=== PATIENT | female | born 1980 | race Two or more races ===

== ENCOUNTER 2017-11-25 22:04 | Inpatient (IN) | payer BC ==
[~2017-11-25] VITALS: Ht 170.2 cm; Wt 105.4 kg
[2017-11-25 22:45] LABS: MICROSCOPIC AUTO
[2017-11-25 23:28] LABS: AMNISURE POSITIVE (NEGATIVE)
[2017-11-25 23:31] LABS: BASOPHILS # (AUTO) 0.05 x10^3/uL (0-0.1); BASOPHILS % (AUTO) 1 % (0-1); EOSINOPHILS # (AUTO) 0.03 x10^3/uL (0-0.4); EOSINOPHILS % (AUTO) 0 % (1-7); LYMPHOCYTES # (AUTO) 1.82 x10^3/uL (1-3.4); LYMPHOCYTES % (AUTO) 17 % (22-44); MD NO; MEAN CORPUSCULAR HEMOGLOBIN 28.9 pg (27.0-34.8); MEAN CORPUSCULAR VOLUME 87.7 fL (80-100); MEAN PLATELET VOLUME 7.6 fL (7.4-10.4); MONOCYTES % (AUTO) 8 % (2-9); NEUTROPHILS # (AUTO) 7.93 x10^3/uL (1.8-6.8); NEUTROPHILS % (AUTO) 75 % (42-75); PLATELET COUNT 244 x10^3/uL (130-400); RED BLOOD COUNT 4.51 x10^6/uL (3.82-5.3); RED CELL DISTRIBUTION WIDTH 13.3 % (9.6-15.2)
[2017-11-25] MEDS ORDERED: OXYTOCIN 30U/ 0.9% NaCL 500ML 500 ML IV ONE (23:40)
[2017-11-25 23:41] LABS: ALANINE AMINOTRANSFERASE 20 U/L (12-78); ALBUMIN 2.7 g/dL (3.4-5.0); ANION GAP 11 mmol/L (5-15); BILIRUBIN, DIRECT < 0.1 mg/dL (0.1-0.2); CALCIUM 9.6 mg/dL (8.5-10.1); CHLORIDE 107 mmol/L (98-107); CREATININE 0.68 mg/dL (0.55-1.02)
[2017-11-25 23:49] LABS: ALKALINE PHOSPHATASE 87 U/L (45-117); BILIRUBIN,TOTAL 0.3 mg/dL (0.2-1.0)
[2017-11-26] MEDS ORDERED: FENTANYL PF 100 MCG/2ML IV PRN
[2017-11-26] MEDS ORDERED: FENTANYL PF 100 MCG/2ML IVPush PRN
[2017-11-26] MEDS ORDERED: ONDANSETRON 2MG/ML, 2ML IVPush PRN
[2017-11-26] MEDS ORDERED: TERBUTALINE 1 MG/ML, 1ML IVPush PRN
[2017-11-26] MEDS: LACTATED RINGERS 1,000 ML IV SCH ×5 (00:05→18:11)
[2017-11-26] MEDS ORDERED: AMPICILLIN 2 GM in SODIUM CHLORIDE 0.9% 100 ML IVPB STA (00:24)
[2017-11-26] MEDS ORDERED: OXYTOCIN 30U/ 0.9% NaCL 500ML 500 ML IV PRN (00:24)
[2017-11-26] MEDS ORDERED: LIDOCAINE 1%, 20ML ONE (00:28)
[2017-11-26] MEDS ORDERED: OXYTOCIN 30U/ 0.9% NaCL 500ML 500 ML ONE (00:28)
[2017-11-26] MEDS ORDERED: MISOPROSTOL 200 MCG TABLET ONE (00:28)
[2017-11-26] MEDS ORDERED: ONDANSETRON 2MG/ML, 2ML ONE (00:34)
[2017-11-26] MEDS ORDERED: TERBUTALINE 1 MG/ML, 1ML ONE (00:40)
[2017-11-26] MEDS ORDERED: NEWBORN KIT ONE (01:01)
[2017-11-26] MEDS ORDERED: LIDOCAINE-MPF 2% ,5ML ONE (01:34)
[2017-11-26] MEDS ORDERED: FENTANYL/BUPIV./NS/PF 250 ML EPIDCONT ONE (01:35)
[2017-11-26] MEDS ORDERED: FENTANYL/BUPIV./NS/PF 250 ML EPIDCONT SCH (02:11)
[2017-11-26] MEDS ORDERED: NALOXONE 0.4 MG/ML, 1ML IVPush PRN (02:30)
[2017-11-26] MEDS ORDERED: LACTATED RINGERS 1,000 ML IVBOLUS PRN (02:30)
[2017-11-26] MEDS ORDERED: EPHEDRINE 50 MG/ML, 1ML IVPush PRN (02:30)
[2017-11-26] MEDS ORDERED: PREN1TAB60 PO (03:55)
[2017-11-26] MEDS ORDERED: RANI75TA12 PO (03:55)
[2017-11-26] MEDS: AMPICILLIN 1 GM in SODIUM CHLORIDE 0.9% 50 ML IVPB SCH ×3 (04:30→08:30)
[2017-11-26] MEDS ORDERED: CALCIUM CARBONATE 500 MG TAB.CHEW ONE (07:56)
[2017-11-26] MEDS: CALCIUM CARBONATE 500 MG TAB.CHEW PO PRN ×2 (07:58→12:00)
[2017-11-26] MEDS: OXYTOCIN 30U/ 0.9% NaCL 500ML 500 ML IV SCH ×2 (08:47→18:47)
[2017-11-26] MEDS ORDERED: MISOPROSTOL 200 MCG TABLET PR PRN (09:00)
[2017-11-26] MEDS: PRENATAL VIT/IRON/FA 1 EACH TABLET PO SCH (09:00)
[2017-11-26] MEDS ORDERED: CARBOPROST TROMETHAMINE 250 MCG/ML, 1ML IM PRN (09:00)
[2017-11-26] MEDS ORDERED: HYDROcodone/APAP 5/325 TABLET PO PRN (09:00)
[2017-11-26] MEDS ORDERED: CALCIUM CARBONATE 500 MG TAB.CHEW PO PRN (09:00)
[2017-11-26] MEDS ORDERED: ONDANSETRON 2MG/ML, 2ML IV PRN (09:00)
[2017-11-26] MEDS ORDERED: METHYLERGONOVINE 0.2 MG/ML IM PRN (09:00)
[2017-11-26] MEDS ORDERED: ACETAMINOPHEN 325 MG TABLET PO PRN (09:00)
[2017-11-26 11:45] VITALS: BP 152/96
[2017-11-26 12:35] VITALS: BP 138/84
[2017-11-26] MEDS: IBUPROFEN 600 MG TABLET PO PRN ×2 (13:47→19:39)
[2017-11-26 15:05] LABS: MEAN CORPUSCULAR HEMOGLOBIN 30.3 pg (27.0-34.8); MEAN CORPUSCULAR HGB CONC 34.3 g/dL (32.4-35.8); MEAN CORPUSCULAR VOLUME 88.4 fL (80-100); MEAN PLATELET VOLUME 7.7 fL (7.4-10.4); PLATELET COUNT 223 x10^3/uL (130-400); RED CELL DISTRIBUTION WIDTH 13.7 % (9.6-15.2)
[2017-11-26 15:23] LABS: BASOPHILS # (AUTO) 0.01 x10^3/uL (0-0.1); BASOPHILS % (AUTO) 0 % (0-1); EOSINOPHILS # (AUTO) 0.02 x10^3/uL (0-0.4); EOSINOPHILS % (AUTO) 0 % (1-7); LYMPHOCYTES # (AUTO) 1.65 x10^3/uL (1-3.4); LYMPHOCYTES % (AUTO) 11 % (22-44); MD SCAN; MONOCYTES # (AUTO) 1.12 x10^3/uL (0.2-0.8); MONOCYTES % (AUTO) 7 % (2-9); NEUTROPHILS # (AUTO) 12.84 x10^3/uL (1.8-6.8); NEUTROPHILS % (AUTO) 82 % (42-75)
[2017-11-26 16:00] VITALS: BP 135/81
[2017-11-26] MEDS: HYDROcodone/APAP 5/325 TABLET PO PRN (19:39)
[2017-11-26] MEDS: DOCUSATE 100 MG CAPSULE PO PRN (19:39)
[2017-11-26 19:40] VITALS: BP 121/91
[2017-11-26 23:55] VITALS: BP 124/78
[2017-11-27] MEDS: IBUPROFEN 600 MG TABLET PO PRN ×4 (01:59→22:09)
[2017-11-27] MEDS: CALCIUM CARBONATE 500 MG TAB.CHEW PO PRN ×2 (01:59→15:52)
[2017-11-27] MEDS: HYDROcodone/APAP 5/325 TABLET PO PRN ×4 (01:59→22:09)
[2017-11-27] MEDS: LACTATED RINGERS 1,000 ML IV SCH ×2 (02:11→10:11)
[2017-11-27 04:05] VITALS: BP 110/75
[2017-11-27] MEDS: OXYTOCIN 30U/ 0.9% NaCL 500ML 500 ML IV SCH (04:47)
[2017-11-27 08:05] VITALS: BP 117/77
[2017-11-27] MEDS: DOCUSATE 100 MG CAPSULE PO PRN ×2 (08:50→22:09)
[2017-11-27] MEDS: PRENATAL VIT/IRON/FA 1 EACH TABLET PO SCH (08:50)
[2017-11-27 19:52] VITALS: BP 130/81
[2017-11-28] MEDS: HYDROcodone/APAP 5/325 TABLET PO PRN ×2 (04:10→10:03)
[2017-11-28] MEDS: IBUPROFEN 600 MG TABLET PO PRN ×2 (04:10→10:03)
[2017-11-28 08:15] VITALS: BP 111/70
[2017-11-28] MEDS: PRENATAL VIT/IRON/FA 1 EACH TABLET PO SCH (08:26)
[2017-11-28] MEDS: DOCUSATE 100 MG CAPSULE PO PRN (08:26)
[2017-11-28] MEDS ORDERED: HYDR-3240 PO (11:39)
[2017-11-28] MEDS ORDERED: IBUP-1222 PO (11:40)
== END 2017-11-28 12:55 | disposition home or self-care (01) | DRG 775 ==
LOC: LDOP 22:04 → LDIP 11-26 00:36 → 2NW 11-26 11:33
PROVIDERS: ADMIT Obstetrics & Gynecology; ATTEND Obstetrics & Gynecology
PROC: 10E0XZZ Delivery of Products of Conception, External Approach (ICD-10-PCS; principal; 2017-11-26)
PROC: 0HQ9XZZ Repair Perineum Skin, External Approach (ICD-10-PCS; 2017-11-26)
PROC: 10H07YZ Insertion of Other Device into Products of Conception, Via Natural or Artificial Opening (ICD-10-PCS; 2017-11-26)
PROC: 3E0R3BZ Introduction of Anesthetic Agent into Spinal Canal, Percutaneous Approach (ICD-10-PCS; 2017-11-26)
PROC: 00HU33Z Insertion of Infusion Device into Spinal Canal, Percutaneous Approach (ICD-10-PCS; 2017-11-26)
DX: O77.0 Labor and delivery complicated by meconium in amniotic fluid (principal); O69.1XX0 Labor and delivery complicated by cord around neck, with compression, not applicable or unspecified; Z37.0 Single live birth; O70.0 First degree perineal laceration during delivery; Z3A.39 39 weeks gestation of pregnancy
CPT/HCPCS: 36415; 80053; 81001; 82248; 82803; 84112; 84550; 85025; J0290; J2405; J2590; J3010; J7120

== ENCOUNTER 2018-11-30 22:49 | Inpatient (IN) | payer BC, OTHER ==
[~2018-11-30] VITALS: Ht 170.2 cm; Wt 81.2 kg
[~2018-11-30 22:49] MED LIST: HYDR-3240 PO; IBUP-1222 PO; PREN1TAB60 PO; RANI75TA12 PO
[2018-11-30] MEDS ORDERED: ONDANSETRON 2MG/ML, 2ML ONE ×2 (23:00→23:24)
[2018-11-30 23:19] LABS: BASOPHILS # (AUTO) 0.03 x10^3/uL (0-0.1); BASOPHILS % (AUTO) 0 % (0-1); EOSINOPHILS # (AUTO) 0.03 x10^3/uL (0-0.4); EOSINOPHILS % (AUTO) 0 % (1-7); LYMPHOCYTES # (AUTO) 1.25 x10^3/uL (1-3.4); LYMPHOCYTES % (AUTO) 11 % (22-44); MD NO; MEAN CORPUSCULAR HEMOGLOBIN 29.2 pg (27.0-34.8); MEAN CORPUSCULAR HGB CONC 33.6 g/dL (32.4-35.8); MEAN CORPUSCULAR VOLUME 86.9 fL (80-100); MEAN PLATELET VOLUME 7.9 fL (7.4-10.4); MONOCYTES # (AUTO) 0.47 x10^3/uL (0.2-0.8); MONOCYTES % (AUTO) 4 % (2-9); NEUTROPHILS # (AUTO) 9.28 x10^3/uL (1.8-6.8); NEUTROPHILS % (AUTO) 84 % (42-75); PLATELET COUNT 266 x10^3/uL (130-400); RED CELL DISTRIBUTION WIDTH 13.6 % (9.6-15.2)
--- NOTE | 2018-11-30 23:20 | NUR ---
PT TO ROOM BY WHEELCHAIR, ACTIVELY VOMITING/PALE/DIAPHORETIC. PT REPORTS EPIGASTRIC ABD PAIN/N/V X 1800 TONIGHT. DENIES FEVER/BLOOD IN EMESIS/CP/SOB. IV ESTABLISHED, LABS DRAWN. IVF HUNG. PT MEDICATED PER VERBAL ORDER FROM ERP FOR NAUSEA. BP/SPO2 MONITORING IN PLACE. EKG COMPLETED UPON ARRIVAL. FRIEND AT BEDSIDE.
[2018-11-30] MEDS ORDERED: PROMETHAZINE 25 MG/ML, 1ML ONE (23:24)
[2018-11-30] MEDS ORDERED: MORPHINE SULFATE 4 MG/ML, 1ML ONE (23:25)
[2018-11-30] MEDS: MORPHINE SULFATE 4 MG/ML, 1ML IVPush PRN (23:26)
[2018-11-30 23:29] LABS: ALANINE AMINOTRANSFERASE 21 U/L (12-78); ALBUMIN 4.5 g/dL (3.4-5.0); ANION GAP 10 mmol/L (5-15); CALCIUM 8.9 mg/dL (8.5-10.1); CHLORIDE 107 mmol/L (98-107); CREATININE 0.97 mg/dL (0.55-1.02)
[2018-11-30] MEDS ORDERED: PROMETHAZINE 25 MG/ML, 1ML IM ONE (23:30)
[2018-11-30] MEDS ORDERED: ONDANSETRON 2MG/ML, 2ML IVPush ONE (23:30)
[2018-11-30] MEDS ORDERED: SODIUM CHLORIDE FLUSH 10ML SYR IVF ONE (23:30)
[2018-11-30 23:34] LABS: ALKALINE PHOSPHATASE 58 U/L (45-117); BILIRUBIN,TOTAL 0.8 mg/dL (0.2-1.0)
--- NOTE | 2018-11-30 23:47 | NUR ---
COMMODE AT BS. PT AWARE OF NEED FOR UA AND AGREES TO PROVIDE WHEN ABLE.
--- NOTE | 2018-12-01 00:08 | NUR ---
PT RESTING COMFORTABLY IN RNEY. RESPIRATIONS EVEN AND UNLABORED. HR 56. NO REPEAT EKG PER ERP
[2018-12-01] MEDS ORDERED: MORPHINE SULFATE 4 MG/ML, 1ML ONE (00:20)
--- NOTE | 2018-12-01 00:20 | NUR ---
PT TO BEDSIDE COMMODE TO PROVIDE UA. UA COLLECTED AND SENT TO LAB
[2018-12-01] MEDS: MORPHINE SULFATE 4 MG/ML, 1ML IVPush PRN (00:26)
[2018-12-01] MEDS ORDERED: SODIUM CHLORIDE 0.9% 1,000 ML IV ONE (00:34)
--- NOTE | 2018-12-01 00:34 | NUR ---
PT REPORTS SLIGHT IMPROVEMENT IN PAIN, 8/10 AND VOMITING. PT MEDICATED PER EMAR FOR CONTINUED PAIN. PT REPORTS CONTINUED VOMITING ERP AT BEDSIDE TO DISCUSS POC (ADMIT), PT DEMONSTRATES UNDERSTANDING.
--- NOTE | 2018-12-01 00:41 | NUR ---
PT RESTING COMFORTABLY AFTER MEDICATIONS. DESAT TO 80'S ON RA. PT EASILY ARROUSABLE TO VOICE; PLACED ON 3L BY NC, SPO2 TO >90%.
[2018-12-01 00:45] LABS: MICROSCOPIC NOT IND
[2018-12-01 00:49] LABS: CULTURE INDICATED? NO
[2018-12-01] MEDS ORDERED: DOCUSATE 100 MG CAPSULE PO PRN (01:00)
[2018-12-01] MEDS ORDERED: hydrALAzine 20 MG/ML, 1ML IVPush PRN (01:00)
[2018-12-01] MEDS ORDERED: ONDANSETRON ODT 4 MG PO PRN (01:00)
[2018-12-01 01:29] LABS: HEMOGLOBIN A1C 5.5 % (4.2-6.3)
[2018-12-01 01:30] VITALS: BP 115/76
[2018-12-01 01:30] LABS: FREE T4 (FREE THYROXINE) 1.28 ng/dL (0.76-1.46)
[2018-12-01] MEDS ORDERED: POTASSIUM CHLORIDE 40 MEQ in SODIUM CHLORIDE 0.9% 500 ML IV ONE (01:30)
[2018-12-01] MEDS: SODIUM CHLORIDE 0.9% 1,000 ML IV SCH ×2 (02:00→23:49)
[2018-12-01] MEDS: HEPARIN 5,000 UNITS/ML, 1ML SQ SCH ×3 (02:01→16:45)
[2018-12-01] MEDS: KETOROLAC 30 MG/1 ML IV PRN ×4 (02:15→22:49)
[2018-12-01] MEDS: PROMETHAZINE 25 MG/ML, 1ML IM PRN (02:15)
[2018-12-01] MEDS: ONDANSETRON 2MG/ML, 2ML IVPush PRN ×3 (05:08→20:01)
[2018-12-01 05:10] LABS: BASOPHILS # (AUTO) 0.02 x10^3/uL (0-0.1); BASOPHILS % (AUTO) 0 % (0-1); EOSINOPHILS % (AUTO) 0 % (1-7); LYMPHOCYTES # (AUTO) 0.43 x10^3/uL (1-3.4); LYMPHOCYTES % (AUTO) 5 % (22-44); MD NO; MEAN CORPUSCULAR HEMOGLOBIN 29.8 pg (27.0-34.8); MEAN CORPUSCULAR HGB CONC 34.2 g/dL (32.4-35.8); MEAN CORPUSCULAR VOLUME 87.1 fL (80-100); MONOCYTES # (AUTO) 0.15 x10^3/uL (0.2-0.8); MONOCYTES % (AUTO) 2 % (2-9); NEUTROPHILS # (AUTO) 8.23 x10^3/uL (1.8-6.8); NEUTROPHILS % (AUTO) 93 % (42-75); PLATELET COUNT 258 x10^3/uL (130-400); RED BLOOD COUNT 4.58 x10^6/uL (3.82-5.3); RED CELL DISTRIBUTION WIDTH 13.8 % (9.6-15.2)
[2018-12-01 05:17] LABS: ALANINE AMINOTRANSFERASE 21 U/L (12-78); ALBUMIN 3.9 g/dL (3.4-5.0); ANION GAP 6 mmol/L (5-15); CALCIUM 7.7 mg/dL (8.5-10.1); CHLORIDE 109 mmol/L (98-107); CREATININE 0.88 mg/dL (0.55-1.02)
[2018-12-01 05:19] LABS: ALKALINE PHOSPHATASE 57 U/L (45-117); BILIRUBIN,TOTAL 0.9 mg/dL (0.2-1.0)
[2018-12-01 05:52] LABS: CLOSTRIDIUM DIFFICILE ANTIGEN NEGATIVE; CLOSTRIDIUM DIFFICILE TOXIN NEGATIVE (Negative)
[2018-12-01 08:40] VITALS: BP 132/89
[2018-12-01] MEDS ORDERED: MAGNESIUM CHLORIDE 64 MG TABLET.DR PO SCH (09:30)
[2018-12-01] MEDS ORDERED: MAGNESIUM SULFATE PMX 2GM/50ML 50 ML IV ONE (09:30)
[2018-12-01] MEDS ORDERED: PANTOPRAZOLE 40 MG IV ONE (10:22)
[2018-12-01] MEDS: PANTOPRAZOLE 40 MG IV IVPush SCH (10:27)
[2018-12-01 13:18] VITALS: BP 117/70
[2018-12-01 20:33] VITALS: BP 103/61
[2018-12-01] MEDS: MAGNESIUM CHLORIDE 70MG TAB DR PO SCH (21:51)
[2018-12-02] MEDS: ONDANSETRON 2MG/ML, 2ML IVPush PRN ×2 (00:45→14:10)
[2018-12-02] MEDS: HEPARIN 5,000 UNITS/ML, 1ML SQ SCH ×3 (00:45→20:20)
[2018-12-02 02:14] VITALS: BP 134/83
[2018-12-02] MEDS: KETOROLAC 30 MG/1 ML IV PRN ×3 (04:59→20:19)
[2018-12-02 05:26] LABS: CHOL/HDL RATIO 2.1; LDL/HDL RATIO 0.7 (0.5-3.0)
[2018-12-02 09:00] VITALS: BP 115/74
[2018-12-02] MEDS: PANTOPRAZOLE 40 MG IV IVPush SCH (09:09)
[2018-12-02] MEDS: MAGNESIUM CHLORIDE 70MG TAB DR PO SCH ×2 (09:09→20:20)
[2018-12-02 13:59] VITALS: BP 180/103
[2018-12-02] MEDS ORDERED: IBUP-1221 PO ×2 (14:54)
[2018-12-02] MEDS ORDERED: OMEP-110 PO ×2 (14:54)
[2018-12-02] MEDS ORDERED: ONDA4TAB7 PO (14:54)
[2018-12-02] MEDS: PROMETHAZINE 25 MG/ML, 1ML IM PRN ×2 (16:53→21:56)
[2018-12-02] MEDS ORDERED: ENALAPRILAT 1.25 MG/ML, 2ML IV PRN (20:00)
[2018-12-02 20:22] VITALS: BP 158/95
[2018-12-03] VITALS (7 sets, daily range): BP systolic 122–167; BP diastolic 76–110
[2018-12-03] MEDS: PROMETHAZINE 25 MG/ML, 1ML IM PRN ×6 (01:02→20:09)
[2018-12-03] MEDS: HEPARIN 5,000 UNITS/ML, 1ML SQ SCH ×3 (04:08→20:09)
[2018-12-03] MEDS: MAGNESIUM CHLORIDE 70MG TAB DR PO SCH ×2 (09:35→20:09)
[2018-12-03] MEDS: PANTOPRAZOLE 40 MG IV IVPush SCH (09:36)
[2018-12-03] MEDS: AMLODIPINE 5 MG TABLET PO SCH (16:30)
[2018-12-03] MEDS ORDERED: OMNIPAQUE 350 MG/ML, 100ML BOTTLE ONE (21:18)
[2018-12-04 02:00] VITALS: BP 148/76
[2018-12-04] MEDS: PROMETHAZINE 25 MG/ML, 1ML IM PRN (03:04)
[2018-12-04] MEDS: HEPARIN 5,000 UNITS/ML, 1ML SQ SCH (03:09)
[2018-12-04 08:49] VITALS: BP 129/84
[2018-12-04] MEDS: AMLODIPINE 5 MG TABLET PO SCH (08:50)
[2018-12-04] MEDS: PANTOPRAZOLE 40 MG IV IVPush SCH (08:50)
[2018-12-04] MEDS ORDERED: OMEP-110 PO (09:42)
[2018-12-04 09:50] VITALS: BP 143/88
== END 2018-12-04 11:00 | disposition home or self-care (01) | DRG 392 ==
LOC: ED 23:59 → EDIP 12-01 00:34 → 4NOR 12-01 00:59
PROVIDERS: ADMIT Internal Medicine; ATTEND Internal Medicine
DX: R11.2 Nausea with vomiting, unspecified (principal); E86.0 Dehydration; E87.6 Hypokalemia; F12.90 Cannabis use, unspecified, uncomplicated; E86.9 Volume depletion, unspecified; K76.0 Fatty (change of) liver, not elsewhere classified; Z87.891 Personal history of nicotine dependence; Z90.49 Acquired absence of other specified parts of digestive tract; Z82.49 Family history of ischemic heart disease and other diseases of the circulatory system
CPT/HCPCS: 36415; 74021; 74177; 80053; 80061; 81003; 82962; 83036; 83690; 83735; 84439; 84443; 84703; 85025; 87324; 89055; 93005; 96372; 96374; 96375; 96376; 99285; G0378; J1644; J1885; J2405; J2550; J3480; Q9967; C9113; J3475; J7030; J7040

== ENCOUNTER 2019-07-27 12:16 | Emergency (ER) | payer OTHER ==
[~2019-07-27] VITALS: Ht 170.2 cm; Wt 73.0 kg
[~2019-07-27 12:16] MED LIST changes: +IBUP-1221 PO; +OMEP-110 PO; +ONDA4TAB7 PO; +RANI-244 PO; -RANI75TA12 PO
--- NOTE | 2019-07-27 13:05 | NUR ---
PT WITH C/O ABD PAIN. N/V. PT WAS HOSPITALIZED LAST FRI-FRI. PT STATES SYMPTOMS HAVE NOT RESOLVED. PIV INITIATED, WILL MEDICATE PER MAR
[2019-07-27] MEDS ORDERED: PROMETHAZINE 25 MG/ML, 1ML ONE (13:13)
[2019-07-27] MEDS ORDERED: KETOROLAC 30 MG/1 ML ONE (13:13)
[2019-07-27] MEDS ORDERED: MAALOX/HYOSCYAMINE/LIDOCAINE 45 ML BTL ONE (13:13)
[2019-07-27 13:28] LABS: BASOPHILS # (AUTO) 0.01 x10^3/uL (0-0.1); BASOPHILS % (AUTO) 0 % (0-1); EOSINOPHILS # (AUTO) 0.04 x10^3/uL (0-0.4); EOSINOPHILS % (AUTO) 0 % (1-7); LYMPHOCYTES # (AUTO) 1.64 x10^3/uL (1-3.4); LYMPHOCYTES % (AUTO) 15 % (22-44); MD NO; MEAN CORPUSCULAR HEMOGLOBIN 29.2 pg (27.0-34.8); MEAN CORPUSCULAR HGB CONC 33.1 g/dL (32.4-35.8); MEAN PLATELET VOLUME 7.6 fL (7.4-10.4); MONOCYTES # (AUTO) 0.67 x10^3/uL (0.2-0.8); MONOCYTES % (AUTO) 6 % (2-9); NEUTROPHILS # (AUTO) 8.71 x10^3/uL (1.8-6.8); NEUTROPHILS % (AUTO) 79 % (42-75); PLATELET COUNT 324 x10^3/uL (130-400); RED BLOOD COUNT 5.14 x10^6/uL (3.82-5.3); RED CELL DISTRIBUTION WIDTH 13.7 % (9.6-15.2)
[2019-07-27] MEDS ORDERED: SODIUM CHLORIDE FLUSH 10ML SYR IVF ONE (13:30)
[2019-07-27] MEDS ORDERED: SODIUM CHLORIDE 0.9% 1,000ML IVBOLUS ONE (13:30)
[2019-07-27] MEDS ORDERED: MAALOX/HYOSCYAMINE/LIDOCAINE 45 ML BTL PO ONE (13:30)
[2019-07-27] MEDS ORDERED: PROMETHAZINE 25 MG/ML, 1ML IM ONE (13:30)
[2019-07-27] MEDS ORDERED: KETOROLAC 30 MG/1 ML IVPush ONE (13:30)
[2019-07-27 13:38] LABS: ALBUMIN 4.2 g/dL (3.4-5.0); ANION GAP 10 mmol/L (5-15); CALCIUM 9.6 mg/dL (8.5-10.1); CHLORIDE 104 mmol/L (98-107)
[2019-07-27 13:43] LABS: ALANINE AMINOTRANSFERASE 46 U/L (12-78); ALKALINE PHOSPHATASE 48 U/L (45-117); CREATININE 1.16 mg/dL (0.55-1.02); TOTAL PROTEIN 7.9 g/dL (6.4-8.2)
[2019-07-27] MEDS ORDERED: LORazepam 2 MG/ML, 1ML IVPush ONE (14:00)
--- NOTE | 2019-07-27 14:00 | NUR ---
PT AMBULATED TO BR WITH STEADY GAIT. UA COLLECTED AND SENT TO LAB
[2019-07-27 14:21] LABS: HCG UR SG 1.024 (1.003-1.030); MICROSCOPIC INDICATED
[2019-07-27 14:22] VITALS: BP 174/105
[2019-07-27] MEDS ORDERED: LORazepam 2 MG/ML, 1ML ONE (14:31)
--- NOTE | 2019-07-27 14:34 | NUR ---
ASSIST RN: PT MEDICATED WITH ATIVAN PER ORDERS. STILL C/O NAUSESA & "NOT FEELING GOOD". FAMILY AT BS.
--- NOTE | 2019-07-27 15:11 | NUR ---
Patient/Caregiver given discharge instructions and they have confirmed that they understand the instructions. Patient ambulatory with steady gait.
[2019-07-27 15:32] LABS: CULTURE INDICATED? NO
== END 2019-07-27 15:13 | disposition home or self-care (01) ==
LOC: ED 12:30
DX: R11.2 Nausea with vomiting, unspecified (principal); Z90.49 Acquired absence of other specified parts of digestive tract
CPT/HCPCS: 36415; 80053; 81001; 81025; 83690; 85025; 96361; 96372; 96374; 96375; 99283; J1885; J2060; J2550; J7030

== ENCOUNTER 2020-12-29 17:09 | Outpatient (CLI) | payer OTHER ==
[~2020-12-29] VITALS: Ht 170.2 cm; Wt 98.0 kg
[~2020-12-29 17:09] MED LIST changes: +HYDR-1067 PO; -HYDR-3240 PO
[2020-12-29 17:58] VITALS: BP 130/71
== END 2020-12-29 18:20 | disposition home or self-care (01) ==
LOC: LDOP 17:09
PROVIDERS: ATTEND Obstetrics & Gynecology
DX: O09.523 Supervision of elderly multigravida, third trimester (principal); Z3A.29 29 weeks gestation of pregnancy
CPT/HCPCS: 59025

== ENCOUNTER 2021-03-13 14:25 | Outpatient (CLI) | payer BC ==
[~2021-03-13] VITALS: Ht 170.2 cm; Wt 101.8 kg
[~2021-03-13 14:25] MED LIST changes: -HYDR-1067 PO; +HYDR-2214 PO
[2021-03-13 14:56] LABS: MICROSCOPIC NOT IND
[2021-03-13 15:13] LABS: CREATININE,URINE RANDOM < 13.00 mg/dL
[2021-03-13 15:14] LABS: TOTAL PROTEIN,URINE RANDOM < 5 mg/dL (0-12)
[2021-03-13 15:15] LABS: BASOPHILS % (AUTO) 1 % (0-1); EOSINOPHILS % (AUTO) 0 % (1-7); LYMPHOCYTES % (AUTO) 14 % (22-44); MEAN CORPUSCULAR HEMOGLOBIN 29.8 pg (27.0-34.8); MEAN CORPUSCULAR HGB CONC 33.9 g/dL (32.4-35.8); MEAN PLATELET VOLUME 8.1 fL (7.4-10.4); MONOCYTES % (AUTO) 8 % (2-9); NEUTROPHILS % (AUTO) 77 % (42-75); PLATELET COUNT 194 x10^3/uL (130-400); RED BLOOD COUNT 3.97 x10^6/uL (3.82-5.3); RED CELL DISTRIBUTION WIDTH 13.8 % (9.6-15.2)
[2021-03-13 15:25] VITALS: BP 127/79
[2021-03-13 15:26] LABS: ANION GAP 10 mmol/L (5-15); CALCIUM 9.2 mg/dL (8.5-10.1); CHLORIDE 105 mmol/L (98-107); CREATININE 0.63 mg/dL (0.55-1.02)
[2021-03-13 15:27] LABS: ALANINE AMINOTRANSFERASE 18 U/L (12-78); ALBUMIN 2.6 g/dL (3.4-5.0); BILIRUBIN, DIRECT < 0.1 mg/dL (0.1-0.2)
[2021-03-13 15:29] LABS: ALKALINE PHOSPHATASE 166 U/L (45-117); BILIRUBIN,TOTAL 0.2 mg/dL (0.2-1.0); TOTAL PROTEIN 6.4 g/dL (6.4-8.2)
[2021-03-13] MEDS ORDERED: PREN1TAB60 PO (16:02)
== END 2021-03-13 16:20 | disposition home or self-care (01) ==
LOC: LDOP 14:25
PROVIDERS: ATTEND Obstetrics & Gynecology
DX: O09.893 Supervision of other high risk pregnancies, third trimester (principal); O13.3 Gestational [pregnancy-induced] hypertension without significant proteinuria, third trimester; Z3A.39 39 weeks gestation of pregnancy
CPT/HCPCS: 36415; 59025; 80053; 81003; 82248; 82570; 84156; 84550; 85025

== ENCOUNTER 2021-03-17 19:42 | Inpatient (IN) | payer BC, OTHER ==
[~2021-03-17] VITALS: Ht 170.2 cm; Wt 101.8 kg
[2021-03-17] MEDS: OXYTOCIN 30U/ 0.9% NaCL 500ML 500 ML IV SCH
[2021-03-17] MEDS ORDERED: CALCIUM CARBONATE 500 MG TAB.CHEW PO PRN (22:00)
[2021-03-17] MEDS ORDERED: LACTATED RINGERS 1,000 ML IV SCH (22:00)
[2021-03-17] MEDS ORDERED: TERBUTALINE 1 MG/ML, 1ML SQ PRN (22:00)
[2021-03-17] MEDS ORDERED: FENTANYL PF 100 MCG/2ML IV PRN (22:00)
[2021-03-17] MEDS ORDERED: TERBUTALINE 1 MG/ML, 1ML IVPush PRN (22:00)
[2021-03-17] MEDS ORDERED: MISOPROSTOL 25 MCG TABLET VG PRN (22:00)
[2021-03-17] MEDS ORDERED: OXYTOCIN 30U/ 0.9% NaCL 500ML 500 ML IV ONE (22:00)
[2021-03-17] MEDS ORDERED: ONDANSETRON 2MG/ML, 2ML IVPush PRN (22:00)
[2021-03-17] MEDS ORDERED: D5%-LACTATED RINGERS 1,000 ML IV SCH (22:00)
[2021-03-17] MEDS ORDERED: OXYTOCIN 30U/ 0.9% NaCL 500ML 500 ML IV PRN (22:00)
[2021-03-17 22:06] LABS: BASOPHILS % (AUTO) 1 % (0-1); EOSINOPHILS % (AUTO) 0 % (1-7); LYMPHOCYTES % (AUTO) 15 % (22-44); MEAN CORPUSCULAR HEMOGLOBIN 29.4 pg (27.0-34.8); MEAN CORPUSCULAR HGB CONC 33.6 g/dL (32.4-35.8); MONOCYTES % (AUTO) 8 % (2-9); NEUTROPHILS % (AUTO) 77 % (42-75); PLATELET COUNT 198 x10^3/uL (130-400); RED BLOOD COUNT 4.37 x10^6/uL (3.82-5.3); RED CELL DISTRIBUTION WIDTH 13.6 % (9.6-15.2)
[2021-03-17] MEDS: FENTANYL PF 100 MCG/2ML IVPush PRN ×2 (22:09→23:00)
[2021-03-17] MEDS ORDERED: NEWBORN KIT ONE (22:12)
[2021-03-17] MEDS ORDERED: MISOPROSTOL 200 MCG TABLET ONE ×2 (22:20→22:50)
[2021-03-17] MEDS ORDERED: FENTANYL/BUPIV./NS/PF 0 ML EPIDCONT ONE ×2 (22:30→22:37)
[2021-03-17] MEDS ORDERED: BUPIVACAINE 0.25% ONE (22:36)
[2021-03-17] MEDS ORDERED: LIDOCAINE 1%, 20ML ONE (22:50)
[2021-03-17] MEDS ORDERED: MISOPROSTOL 200 MCG TABLET PR PRN (23:30)
[2021-03-17] MEDS ORDERED: HYDROcodone/APAP 5/325 TABLET PO PRN (23:30)
[2021-03-17] MEDS ORDERED: ACETAMINOPHEN 325 MG TABLET PO PRN (23:30)
[2021-03-17] MEDS ORDERED: ONDANSETRON 2MG/ML, 2ML IV PRN (23:30)
[2021-03-17] MEDS ORDERED: METHYLERGONOVINE 0.2 MG/ML IM PRN (23:30)
[2021-03-17] MEDS ORDERED: OXYTOCIN 10 UNITS/ML, 1ML IM PRN (23:30)
[2021-03-18] MEDS ORDERED: LABETALOL 200 MG TABLET ONE (00:34)
[2021-03-18] MEDS: LABETALOL 200 MG TABLET PO SCH ×2 (00:36→18:17)
[2021-03-18 00:59] LABS: ALANINE AMINOTRANSFERASE 19 U/L (12-78); ALBUMIN 2.6 g/dL (3.4-5.0); ANION GAP 9 mmol/L (5-15); CALCIUM 10.3 mg/dL (8.5-10.1); CHLORIDE 107 mmol/L (98-107); CREATININE 0.68 mg/dL (0.55-1.02)
[2021-03-18 01:02] LABS: ALKALINE PHOSPHATASE 188 U/L (45-117); BILIRUBIN,TOTAL 0.2 mg/dL (0.2-1.0); TOTAL PROTEIN 6.9 g/dL (6.4-8.2)
[2021-03-18] MEDS: OXYTOCIN 30U/ 0.9% NaCL 500ML 500 ML IV SCH ×2 (02:10→19:30)
[2021-03-18 02:20] VITALS: BP 127/78
[2021-03-18 06:40] LABS: BASOPHILS % (AUTO) 1 % (0-1); EOSINOPHILS % (AUTO) 0 % (1-7); LYMPHOCYTES % (AUTO) 13 % (22-44); MEAN CORPUSCULAR HGB CONC 34.2 g/dL (32.4-35.8); MEAN PLATELET VOLUME 7.6 fL (7.4-10.4); MONOCYTES % (AUTO) 7 % (2-9); NEUTROPHILS % (AUTO) 79 % (42-75); PLATELET COUNT 159 x10^3/uL (130-400); RED BLOOD COUNT 3.76 x10^6/uL (3.82-5.3); RED CELL DISTRIBUTION WIDTH 13.6 % (9.6-15.2)
[2021-03-18 07:45] VITALS: BP 142/84
[2021-03-18] MEDS: PRENATAL VIT/IRON/FA 1 EACH TABLET PO SCH (08:33)
[2021-03-18] MEDS: DOCUSATE 100 MG CAPSULE PO PRN ×2 (08:33→21:21)
[2021-03-18] MEDS: HYDROcodone/APAP 5/325 TABLET PO PRN (08:34)
[2021-03-18 11:45] VITALS: BP 150/89
[2021-03-18 13:32] VITALS: BP 122/79
[2021-03-18] MEDS: SIMETHICONE 80 MG CHEW TAB PO PRN ×2 (13:37→21:22)
[2021-03-18] MEDS: IBUPROFEN 600 MG TABLET PO PRN ×2 (15:25→21:21)
[2021-03-18 17:01] VITALS: BP 112/73
[2021-03-18 20:40] VITALS: BP 139/91
[2021-03-18 21:57] LABS: CREATININE,URINE RANDOM 62.9 mg/dL
[2021-03-19 02:10] VITALS: BP 124/81
[2021-03-19] MEDS: HYDROcodone/APAP 5/325 TABLET PO PRN (02:22)
[2021-03-19] MEDS: OXYTOCIN 30U/ 0.9% NaCL 500ML 500 ML IV SCH (05:30)
[2021-03-19 05:31] VITALS: BP 117/81
[2021-03-19 07:59] VITALS: BP 126/82
[2021-03-19] MEDS: LABETALOL 200 MG TABLET PO SCH (08:23)
[2021-03-19] MEDS: IBUPROFEN 600 MG TABLET PO PRN (08:23)
[2021-03-19] MEDS: DOCUSATE 100 MG CAPSULE PO PRN (08:23)
[2021-03-19] MEDS: PRENATAL VIT/IRON/FA 1 EACH TABLET PO SCH (08:23)
[2021-03-19] MEDS ORDERED: HYDR-2214 PO (10:37)
[2021-03-19] MEDS ORDERED: IBUP-1222 PO (10:37)
[2021-03-19] MEDS ORDERED: LABE100T6 PO (10:38)
[2021-03-19] MEDS ORDERED: SENN-52 PO (10:38)
== END 2021-03-19 12:45 | disposition home or self-care (01) | DRG 807 ==
LOC: LDOP 19:42 → LDIP 21:44 → 2NE 03-18 01:26 → 2NW 03-18 05:18
PROVIDERS: ADMIT Obstetrics & Gynecology; ATTEND Obstetrics & Gynecology
PROC: 10E0XZZ Delivery of Products of Conception, External Approach (ICD-10-PCS; principal; 2021-03-18)
PROC: 0KQM0ZZ Repair Perineum Muscle, Open Approach (ICD-10-PCS; 2021-03-18)
DX: O62.3 Precipitate labor (principal); Z37.0 Single live birth; O70.1 Second degree perineal laceration during delivery; Z3A.40 40 weeks gestation of pregnancy; Z90.49 Acquired absence of other specified parts of digestive tract; Z20.822 Contact with and (suspected) exposure to COVID-19
CPT/HCPCS: 36415; 80053; 82570; 84156; 85025; 86592; 86850; 86900; 87635; G0378; J3010; J2590; J7120